=== PATIENT | male | born 1960 | race Caucasian/White ===

== ENCOUNTER 2020-04-11 19:13 | Emergency (ER) | payer OTHER ==
[2020-04-11] MEDS ORDERED: HYDROcod/ACETAM 5/325 MG TABLET PO STA ×2 (19:44→20:23)
--- NOTE | 2020-04-11 19:47 | ED Physician Documentation ---
PD HPI UPPER EXT INJURY - Stated complaint Stated Complaint: RT HAND INJ - Chief complaint Chief Complaint: Ext Problem - History obtained from History obtained from: Patient - History of Present Illness Location: Right, Hand Type of injury: Blunt / blow Where injury occurred: Work Similar symptoms before: Has not had sx before Recently seen: Not recently seen - Additonal information Additional information: -year-old right-handed male presents to the emergency department with acute right hand pain after his hand slipped off a wrench at work today forcefully slamming into a stainless steel sink. He reports that he immediately had pain over the second, third ,and fourth, proximal MCP joints. However he continued to work normally until he went home. He has been icing the hand but that it has gotten progressively more swollen and he has pain when he extends the fingers he is worried that he may have a subtle fracture. no open sores or lesions PD PAST MEDICAL HISTORY - Past Medical History Past Medical History: Yes Cardiovascular: Hypertension Endocrine/Autoimmune: Type 2 diabetes - Past Surgical History Past Surgical History: Yes Ortho: Arthroscopic surgery - Present Medications Home Medications: Ambulatory Orders Medication Instructions Recorded Confirmed Ibuprofen [Motrin] 600 mg PO Q6H PRN #30 tab 04/11/20 - Allergies Allergies/Adverse Reactions: Allergies Allergy/AdvReac Type Severity Reaction Status Date / Time No Known Drug Allergies Allergy Verified 04/11/20 19:28 - Social History Does the pt smoke?: Yes Smoking Status: Current every day smoker Does the pt drink ETOH?: Yes Does the pt have substance abuse?: No - Immunizations Immunizations are current?: Yes - POLST Patient has POLST: No PD ED PE EXPANDED - General General: Alert, No acute distress - Extremities Extremities: Tenderness, Right hand (normal felxion/extension of hand wrist agaist resistance. swelling over the 2,3,4th MCP joints. 2+ radial pulse) Results - Vitals Vitals: Vital Signs - 24 hr 04/11/20 04/11/20 19:25 20:52 Temperature 36.7 C Heart Rate 61 65 Respiratory 17 16 Rate Blood Pressure 122/71 135/79 H O2 Saturation 98 99 Oxygen O2 Source Room air - Rads (name of study) right hand Radiology: Final report received (Right hand without acute fracture or dislocation) PD MEDICAL DECISION MAKING - ED course Complexity details: reviewed results, considered differential, d/w patient ED course: 59-year-old male presents with acute right hand pain after his hand slipped off a wrench at work and slammed forcefully into a stainless steel sink. He has swelling over the second third and fourth MCP joints but normal movement of the hand and flexion and extension at all digits. The x-ray does not show acute fracture or dislocation. At this time I favor a contusion. Patient was given a Velcro wrist blade brace for support. I recommend NSAIDs and follow-up with primary care physician if symptoms not improved in 1 week. This was a on the job work injury however he was able to finish work today and I feel that he should be able to continue working without restriction Departure - Departure Disposition: 01 Home, Self Care Clinical Impression: Right hand pain Condition: Stable Prescriptions: Ibuprofen [Motrin] 600 mg PO Q6H PRN #30 tab PRN Reason: Pain Comments: The x-ray of your hand does not show any broken bones. I think you simply have a bad contusion. Let us have you wear the wrist brace while at work and take ibuprofen as prescribed for the next 3 to 4 days. I would like you to follow-up with your primary care doctor for further evaluation if your symptoms are not much better within 1 week. However I do feel that you can return to regular work duty at this time. Discharge Date/Time: 04/11/20 20:53
--- NOTE | 2020-04-11 20:28 | XRAY Report ---
PROCEDURE: Hand 3 View RT INDICATIONS: r/o fx. hit by wrench TECHNIQUE: 3 views of the hand(s) acquired. COMPARISON: None. FINDINGS: Bones: No acute fractures or dislocations. Multilevel background degenerative changes of the right hand. No suspicious bony lesions. Soft tissues: No suspicious soft tissue calcifications. IMPRESSION: Right hand without acute fracture or dislocation. If there is persistent clinical concern for a radiographically occult fracture, recommend immobilizat ion and repeat imaging in 10 to 14 days. Reviewed by: Rc Penn MD on 04/11/2020 8:26 PM PDT Approved by: Rc Penn MD on 04/11/2020 8:26 PM PDT Station ID: [id number]
[2020-04-11 20:54] VITALS: BP 135/79
== END 2020-04-11 20:53 | disposition home or self-care (01) ==
LOC: ED 19:13
DX: M79.641 Pain in right hand (principal); I10 Essential (primary) hypertension; E11.9 Type 2 diabetes mellitus without complications; F17.200 Nicotine dependence, unspecified, uncomplicated
CPT/HCPCS: 73130; 99281; 99283; A9270

== ENCOUNTER 2020-10-21 13:15 | Emergency (ER) | payer OTHER ==
[2020-10-21 13:34] VITALS: BP 136/84
[2020-10-21 13:55] LABS: BASOPHILS # (AUTO) 0.1 10^3/uL (0.0-0.1); BASOPHILS % (AUTO) 0.5 %; EOSINOPHILS # (AUTO) 0.2 10^3/uL (0.0-0.7); EOSINOPHILS % (AUTO) 1.6 %; HGB - HEMOGLOBIN 15.3 g/dL (14.0-18.0); LYMPHOCYTES % (AUTO) 21.2 %; MEAN CORPUSCULAR HEMOGLOBIN 32.1 pg (27.0-31.0); MEAN CORPUSCULAR VOLUME 94.5 fL (80.0-94.0); MEAN PLATELET VOLUME 9.8 fL (7.4-11.4); MONOCYTES # (AUTO) 0.6 10^3/uL (0.0-1.0); MONOCYTES % (AUTO) 6.6 %; NEUTROPHILS # (AUTO) 6.5 10^3/uL (1.5-6.6); NEUTROPHILS % (AUTO) 69.8 %; PLT - PLATELET COUNT 144 10^3/uL (130-450); RED BLOOD COUNT 4.76 10^6/uL (4.70-6.10); RED CELL DISTRIBUTION WIDTH 12.3 % (12.0-15.0); WHITE BLOOD COUNT 9.4 x10^3/uL (4.8-10.8)
[2020-10-21 13:59] LABS: INR 1.2 (0.8-1.2); PT - PROTHROMBIN TIME 13.5 secs (9.9-12.6)
[2020-10-21 14:02] LABS: BILIRUBIN,URINE NEGATIVE (NEGATIVE); GLUCOSE, URINE (UA) NEGATIVE (NEGATIVE); KETONES,URINE (UA) NEGATIVE (NEGATIVE); LEUKOCYTE ESTERASE, URINE NEGATIVE (NEGATIVE); NITRITE,URINE NEGATIVE (NEGATIVE); OCCULT BLOOD,URINE NEGATIVE (NEGATIVE); PROTEIN,URINE NEGATIVE (NEGATIVE); UROBILINOGEN,URINE 0.2 (NORMAL) E.U./dL (NORMAL)
[2020-10-21 14:03] LABS: CLARITY,URINE CLEAR (CLEAR)
[2020-10-21 14:06] LABS: ALBUMIN 4.2 g/dL (3.2-5.5); ALBUMIN/GLOBULIN RATIO 1.4 (1.0-2.2); BILIRUBIN,TOTAL 1.2 mg/dL (0.2-1.0); CALCIUM 9.3 mg/dL (8.5-10.3); CREATININE 0.8 mg/dL (0.6-1.2); POTASSIUM 4.2 mmol/L (3.5-5.0); TOTAL PROTEIN 7.3 g/dL (6.7-8.2)
--- NOTE | 2020-10-21 14:26 | ED Physician Documentation ---
History of Present Illness - Stated complaint Stated Complaint: MALE - Chief complaint Chief Complaint: General - History obtained from History obtained from: Patient - History of Present Illness Timing: Today Pain level max: 0 Pain level now: 0 - Additonal information Additional information: Patient is a 60-year-old male who presents to the emergency department complaining of rectal bleeding x2 today. He states he was having diarrhea as well. No pain. The first time he states was bright red blood, the second time appeared darker to him. Has never had this before. Had a normal colonoscopy about 10 years ago. He is not on any blood thinners. No abdominal pain. No vomiting. No recent travel or antibiotics. Currently asymptomatic. Review of Systems Ten Systems: 10 systems reviewed and negative Constitutional: denies: Fever, Chills Throat: denies: Sore throat Cardiac: denies: Chest pain / pressure Respiratory: denies: Cough GI: denies: Vomiting, Hematemesis : denies: Dysuria, Frequency, Hesitancy Skin: denies: Rash Musculoskeletal: denies: Neck pain, Back pain Neurologic: denies: Headache PD PAST MEDICAL HISTORY - Past Medical History Cardiovascular: Hypertension Endocrine/Autoimmune: Type 2 diabetes - Past Surgical History Past Surgical History: Yes Ortho: Arthroscopic surgery - Present Medications Home Medications: Ambulatory Orders Medication Instructions Recorded Confirmed Ibuprofen [Motrin] 600 mg PO Q6H PRN #30 tab 04/11/20 - Allergies Allergies/Adverse Reactions: Allergies Allergy/AdvReac Type Severity Reaction Status Date / Time No Known Drug Allergies Allergy Verified 10/21/20 13:34 - Social History Does the pt smoke?: Yes Smoking Status: Current every day smoker Does the pt drink ETOH?: Yes Does the pt have substance abuse?: No - Immunizations Immunizations are current?: Yes - POLST Patient has POLST: No PD ED PE NORMAL - Vitals Vital signs reviewed: Yes - General General: Alert and oriented X 3, No acute distress - HEENT HEENT: Moist mucous membranes - Neck Neck: Supple, no meningeal sign - Cardiac Cardiac: RRR - Respiratory Respiratory: No respiratory distress, Clear bilaterally - Abdomen Abdomen: Soft, Non tender, Non distended - Rectal Rectal: Other (No visible hemorrhoids. Small amount of bright red blood on the glove. Otherwise normal rectal exam) - Derm Derm: Warm and dry - Extremities Extremities: No edema, No calf tenderness / cord - Neuro Neuro: Alert and oriented X 3 - Psych Psych: Normal mood, Normal affect Results - Vitals Vitals: Vital Signs - 24 hr 10/21/20 13:30 Temperature 36.8 C Heart Rate 70 Respiratory 18 Rate Blood Pressure 136/84 H O2 Saturation 97 Oxygen O2 Source Room air - Labs Labs: Laboratory Tests 10/21/20 10/21/20 10/21/20 13:46 13:46 13:46 WBC 9.4 RBC 4.76 Hgb 15.3 Hct 45.0 MCV 94.5 H MCH 32.1 H MCHC 34.0 RDW 12.3 Plt Count 144 MPV 9.8 Neut # (Auto) 6.5 Lymph # (Auto) 2.0 Andrew # (Auto) 0.6 Eos # (Auto) 0.2 Baso # (Auto) 0.1 Absolute Nucleated RBC 0.00 Nucleated RBC % 0.0 PT 13.5 H INR 1.2 Sodium Potassium Chloride Carbon Dioxide Anion Gap BUN Creatinine Estimated GFR (MDRD) Glucose Calcium Total Bilirubin AST ALT Alkaline Phosphatase Total Protein Albumin Globulin Albumin/Globulin Ratio Lipase Urine Color Urine Clarity Urine pH Ur Specific Albin Urine Protein Urine Glucose (UA) Urine Ketones Urine Occult Blood Urine Nitrite Urine Bilirubin Urine Urobilinogen Ur Leukocyte Esterase Ur Microscopic Review Urine Culture Comments Blood Type A NEGATIVE Antibody Screen NEGATIVE 10/21/20 10/21/20 13:46 13:53 WBC RBC Hgb Hct MCV MCH MCHC RDW Plt Count MPV Neut # (Auto) Lymph # (Auto) Andrew # (Auto) Eos # (Auto) Baso # (Auto) Absolute Nucleated RBC Nucleated RBC % PT INR Sodium 136 Potassium 4.2 Chloride 98 L Carbon Dioxide 24 Anion Gap 14.0 H BUN 15 Creatinine 0.8 Estimated GFR (MDRD) 98 Glucose 124 H Calcium 9.3 Total Bilirubin 1.2 H AST 17 ALT 27 Alkaline Phosphatase 46 Total Protein 7.3 Albumin 4.2 Globulin 3.1 Albumin/Globulin Ratio 1.4 Lipase 26 Urine Color LIGHT YELLOW Urine Clarity CLEAR Urine pH 6.0 Ur Specific Albin 1.010 Urine Protein NEGATIVE Urine Glucose (UA) NEGATIVE Urine Ketones NEGATIVE Urine Occult Blood NEGATIVE Urine Nitrite NEGATIVE Urine Bilirubin NEGATIVE Urine Urobilinogen 0.2 (NORMAL) Ur Leukocyte Esterase NEGATIVE Ur Microscopic Review NOT INDICATED Urine Culture Comments NOT INDICATED Blood Type Antibody Screen - Rads (name of study) CT abdomen pelvis Radiology: Prelim report reviewed, EMP read contemporaneously, See rad report PD MEDICAL DECISION MAKING - ED course Complexity details: reviewed results, re-evaluated patient, considered differential, d/w patient ED course: 60-year-old male with stable hematochezia today. No abnormality on CT scan. Hemoglobin is 15. No recurrent bleeding in the emergency department. Patient is well-appearing, nontoxic. Afebrile. No chest pain. No shortness of breath. We will have him follow-up with his doctor for further care and an outpatient colonoscopy. Patient counseled regarding signs and symptoms for which I believe and urgent re-evaluation would be necessary. Patient with good understanding of and agreement to plan and is comfortable going home at this time This document was made in part using voice recognition software. While efforts are made to proofread this document, sound alike and grammatical errors may occur. IMPRESSION: No acute abnormality identified. No free fluid. Diverticulosis without diverticulitis. Departure - Departure Disposition: 01 Home, Self Care Clinical Impression: Hematochezia Condition: Good Instructions: ED Hematochezia Stable Follow-Up: Aaron Granados [Primary Care Provider] - Within 1 week Comments: There are no acute abnormalities on your laboratory testing or CT scan. Please follow-up with your doctor for further care. You will need a colonoscopy scheduled within the next 1-2 weeks. Return if you worsen. Discharge Date/Time: 10/21/20 16:25
[2020-10-21] MEDS ORDERED: IOVERSOL 320 100 ML VIAL IVP ONE ×2 (14:42→14:54)
--- NOTE | 2020-10-21 15:18 | CT Report ---
PROCEDURE: Abdomen/Pelvis W INDICATIONS: rectal bleeding, diarrhea CONTRAST: IV CONTRAST: Optiray 320 ml: 100 PO CONTRAST: *NO PO CONTRAST TECHNIQUE: After the administration of intravenous contrast, 5 mm thick sections acquired from the diaphragms to the symphysis. 5 mm thick coronal and sagittal reformats were acquired. For radiation dose reducti on, the following was used: automated exposure control, adjustment of mA and/or kV according to ayesha ent size. COMPARISON: None. FINDINGS: Image quality: Excellent. ABDOMEN: Lung bases: 3 mm pulmonary nodule at the left lower lobe. No pleural effusion. Heart size is normal. Solid organs: Liver and spleen are normal in size and enhancement. Small splenule. Gallbladder is un remarkable. Biliary system is non dilated. Pancreas enhances normally. No adrenal nodules. Kidney s demonstrate normal size and enhancement, without hydronephrosis. Small left kidney simple cyst. Peritoneum and bowel: Bowel loops demonstrate normal wall thickness and caliber. Diverticulosis. Nor mal appendix. No free fluid or air. Nodes and vessels: No retroperitoneal or mesenteric adenopathy by size criteria. Aorta and inferior vena cava are normal in size. Miscellaneous: No significant ventral hernias. PELVIS: Genitourinary: Bladder wall thickness is normal. Bladder is distended. Right seminal vesicle is mil dly prominent compared to the left. Miscellaneous: No inguinal hernias or adenopathy. No free fluid. Bones: No suspicious bony lesions. No vertebral body compression fractures. IMPRESSION: No acute abnormality identified. No free fluid. Diverticulosis without diverticulitis. Reviewed by: Wayne yL MD on 10/21/2020 2:17 PM FIGUEROA Approved by: Wayne Ly MD on 10/21/2020 2:17 PM AKDT Station ID: [id number]
== END 2020-10-21 16:25 | disposition home or self-care (01) ==
LOC: ED 13:15
DX: K92.1 Melena (principal); F17.200 Nicotine dependence, unspecified, uncomplicated
CPT/HCPCS: 36415; 74177; 80053; 81003; 83690; 85025; 85610; 86850; 86900; 86901; 99284; Q9967; 81001; 87086

== ENCOUNTER 2021-09-27 15:41 | Outpatient (CLI) | payer OTHER ==
[2021-09-27 16:32] VITALS: BP 127/95
--- NOTE | 2021-09-27 16:32 | SLEEP CARE CONSULTATION ---
Information from patient questionnaire entered by Elan Mistry MA. I have reviewed and concur with the information entered by Elan Mistry MA. This document represents the service I personally performed and the decisions made by me, Shoshana Webster ARNP. History of Present Illness Service Date and Time: 09/27/2021 1541 Reason for Visit: New patient (ONSET 08/2011, STOPPED CPAP 1 YEAR AGO,), Previously diagnosed sleep apnea Chief Complaint: reports: Unrefreshed sleep, Snoring, Excessive daytime sleepiness, Observed pauses in breathing, Fatigue, Other (needs supplies) Date of Onset: 20 YEARS Usual bedtime: 930 PM Time it takes to fall asleep: NOT LONG Snores at night: Yes Observed to quit breathing while asleep: Yes Sleeps alone due to snoring: No Number of times waking at night: 2 Reasons for waking at night: reports: Snoring, Gasping for air, Bathroom Toss, Turn, or Twitch while sleeping: Yes Recalls having dreams: Yes Usually gets out of bed at: 0600 Feels refreshed in the morning: No Morning headache: No Sleepy or fatigued during the day: Yes Ever fallen asleep while driving: No Takes day naps: No (rarely) Dreams during day naps: Yes Prior sleep studies: Yes Year and Where: [facility] 1993; [facility] Additional HPI information: I had the pleasure of seeing CHRISTINA ALLEN today regarding the possibility of him having a sleep disorder. He was previously diagnosed with sleep apnea but has not been using the CPAP for a 4-5 years. His current complaints are excessive daytime sleepiness, fatigue, observed pauses in breathing, snoring, unrefreshed sleep and needs supplies. Patient states he lost his insurance and that his CPAP broke. He was unable to get it replaced or afford supplies. He has not been able to use his CPAP for the last 4 to 5 years. He finally obtained insurance and is here to see if he can get back on the CPAP if needed. Patient has lost about 40 pounds since his last sleep study. He states he was so severe they woke him up and put him on a CPAP pretty quickly after he fell asleep during the study. He does not voice any issues that he had using CPAP before it broke. He feels has improved but still has daytime fatigue, loud snoring and unrefreshed sleep. - Parasomnia Symptoms Ever been unable to move upon waking from sleep: No Walks in sleep: Yes (when younger) Talks in sleep: Yes Ever acted out dreams in sleep: Yes (not since he was younger) Ever felt weak in the knees when startled or emotional: No Bothered by creepy, crawly, restless sensations in legs: No Problems with memory or concentration: Yes (not severe, just when tired) CPAP Compliance Data Compliance data discussion: He states he was using his cpap until it broke and because he did not have insurance, he could not replace it or get supplies. 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 Patient is and lives in [place]. Have you smoked in the past 12 months: Yes Cigarettes per day (20/pack): 10 Years of smokin Smoking Pack Years: 10.0 Alcohol use: Yes Alcohol amount and frequency: 1 X YEARLY Caffeine use: Yes Caffeine amount and frequency: 1 X DAILY Family History Family history of sleep disordered breathing: Yes Family Hx Sleep Apnea: Father: Snoring, Sleep apnea - Untreated Allergies and Home Medications Known drug allergies: No Drug allergies reviewed: Yes (NKDA) Home medication list reviewed: Yes Allergy and home medication list: Allergies No Known Drug Allergies Allergy (Verified 10/21/20 13:34) Medications: Metformin Losartin Rosuvastatin Tradjenta Review of Systems Weight gain over past 5 years: 20 Weight loss over past 5 years: 40 Respiratory: reports: wheeze Ear/Nose/Throat: denies: tonsillectomy Musculoskeletal: reports: joint pain Immunologic: reports: rash, itching Physical Exam Vital signs obtained and entered by: Edmond Mistry CMA AAMA Blood Pressure: 127/95 (RIGHT, PULSE 73, RESP 16, ) Cuff size: wrist Heart Rate: 71 O2 Saturation: 96 Height: 6 ft Weight: 265 lb Body Mass Index: 35.9 BMI Classification: Obese Heart: regular rate and rhythm Lungs: clear bilaterally Impression and Plan 1. Suspected Obstructive Sleep Apnea-Hypopnea Syndrome, as previously diagnosed and as suggested by a history of loud and irregular snoring, observed cessation of breath while asleep, gasping or choking in sleep, unrefreshed sleep, cognitive impairment, and excessive daytime sleepiness. I recommend proceeding to polysomnography to confirm the diagnosis and to assess severity. If the patient has significant sleep disordered breathing, a manual CPAP titration study will also be performed to find the optimal treatment pressure. I informed the patient of what the sleep studies involve and after some discussion, obtained agreement to proceed. The pathophysiology of obstructive sleep apnea- hypopnea syndrome was discussed with the patient and health risks of cardiovascular and cerebrovascular disease if not treated. 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 Patient agreed to plan. * Schedule polysomnography +- manual CPAP titration study and return in 1-2 weeks after the study to discuss result and initiate therapy. * Avoid long distance driving or driving when feeling sleepy. * Avoid alcohol, sedative and muscle relaxant around bedtime. * Attempt to lose weight. * Review instructions provided by trained office staff on how to prepare for the sleep study. * Return for follow-up after sleep study completed. Counseling Topics: Weight loss health impact Visit Type: In Office Time Spent with Patient (minutes): 31 Provider Statement: I spent 100% of the Face to Face Visit with the patient with greater than 50% spent counseling the patient and coordination of care.
== END 2021-09-27 15:42 | disposition home or self-care (01) ==
LOC: SC 15:41
PROVIDERS: ATTEND Nurse Practitioner Family
DX: G47.33 Obstructive sleep apnea (adult) (pediatric) (principal); E66.9 Obesity, unspecified; Z68.35 Body mass index [BMI] 35.0-35.9, adult
CPT/HCPCS: 99203; 99212

== ENCOUNTER 2021-10-24 15:51 | Outpatient (CLI) | payer OTHER | END 2021-10-24 15:52 | disposition home or self-care (01) | LOC: SC 15:51 | PROVIDERS: ATTEND Nurse Practitioner Family | DX: G47.33 Obstructive sleep apnea (adult) (pediatric) (principal); R09.02 Hypoxemia | CPT/HCPCS: 95806 ==

== ENCOUNTER 2021-11-08 16:16 | Outpatient (CLI) | payer OTHER ==
--- NOTE | 2021-11-08 17:00 | SLEEP CARE CONSULTATION ---
Information from patient questionnaire entered by Elan Mistry MA. I have reviewed and concur with the information entered by Elan Mistry MA. This document represents the service I personally performed and the decisions made by , Shoshana Webster ARNP. History of Present Illness Service Date and Time: 11/08/2021 1616 Initial [place] Sleepiness Scale score: 20 (2021) Current [place] Sleepiness Scale score: 20 Additional HPI information: CHRISTINA ALLEN returns for follow up and results of the recently performed home sleep study. I explained the pathophysiology behind obstructive sleep apnea. We then spent quite a bit of time discussing different treatment options. For mild obstructive sleep apnea, surgery and oral appliance are alternatives to nasal CPAP therapy but in moderate or severe cases, nasal CPAP is the most effective and reliable treatment. Because apnea is primarily in supine position, then positional management therapy could be effective. Methods discussed such as positioning with pillows to prevent supine sleep. I reviewed the impact of weight changes on sleep apnea and strongly recommended losing weight. After some discussion, the patient opted to go with the nasal CPAP therapy. Nasal autoCPAP set at 4-15 cmH20 will be ordered with rationale explained. A manual titration study will be ordered if unable to find optimal pressure with office adjustments. I explained how CPAP machine works and what to expect when using the machine. Using CPAP every night in order to get used to it was emphasized. Patient advised to put CPAP mask on before getting into bed so as not to fall asleep without CPAP. To assist acclimation to CPAP use, it could also be used for a short time during day while reading or watching TV. The patient was instructed to call the CPAP supplier to discuss any mechanical problem that may occur. If the mask given is uncomfortable or is difficult to keep on through the night even with adjustment, contact the CPAP supplier as many will replace with another mask style if notified before 30 days. If snoring or perceives is not getting enough air or too much air from the machine, notify this office. AASM patient education PAP tips reviewed and given to patient. Patient counseled not drink alcohol less than 4 hours before bedtime as it can increase snoring and apnea. Patient was cautioned about risks of drowsy driving until sleepiness symptoms resolve. Patient denies drowsy driving. Sleep Study - Results Type of Sleep Study: Home sleep study (F/U HOME STUDY, 10/24/21 [facility],) Prior sleep studies: Yes Year and Where: BISHOP LUQUE 1993; [facility] Polysomnography/Home Sleep Study results: Physician Impression: The quality of the study is good. The length of the study is adequate (> 240 minutes). Please also see the tabulated and graphic data. 1. Obstructive Sleep Apnea-Hypopnea (ICD-10 G47.33), severe, with an AHI of 52.0/hr and brenda SaO2 of 75%. During the study, the patient had 369 apneas (368 obstructive, 0 central, 1 mixed) and 38 hypopneas. The longest episode lasted 204.5 seconds. The respiratory events occurred slightly more frequently during supine sleep (supine AHI was 66.1 and non-supine, 42.21). 2. Hypoxemia (ICD-10 R09.02), moderate, with the lowest oxygen saturation of 75 % and 52.4 minutes with SaO2 under 90%. Baseline oxygen saturation was normal (Average oxygen saturation was 92%). Allergies and Home Medications Home medication list reviewed: Yes (no changes) Allergy and home medication list: Allergies No Known Drug Allergies Allergy (Verified 10/21/20 13:34) Review of Systems Review of systems same as previous: Yes (no changes) Physical Exam Vital signs obtained and entered by: ZAKIYA RETANA Blood Pressure: 129/77 (left) Cuff size: wrist Heart Rate: 68 O2 Saturation: 96 Height: 6 ft Weight: 255 lb Body Mass Index: 34.5 BMI Classification: Obese Impression and Plan 1. Obstructive Sleep Apnea-Hypopnea Syndrome, severe, with lowest oxygen saturation of 75%. Obviously this is the cause of the patients symptoms of unrefreshed sleep, and excessive daytime sleepiness. Positive pressure therapy could benefit diabetes. As mentioned above, the patient will be started on nasal autoCPAP therapy with pressure set at 4-15 cmH2O. A manual titration study will be completed if unable to find optimal treatment pressure with office adjustments. Compliance guidelines also reviewed. A copy of compliance guidelines will be given for reference at check out. Because the apnea is more severe supine, I instructed to avoid sleeping supine using pillow positioning until able to start CPAP use. 2. Hypoxemia, moderate, with the lowest oxygen saturation of 75 % and 52.4 minutes with SaO2 under 90%. His baseline oxygen saturation was normal with an average oxygen saturation of 92%. * Nasal auto CPAP therapy, pressure at 4-15 cm H2O. * Attempt to lose weight. * Avoid alcohol consumption near bedtime. * Avoid supine sleep until using CPAP. * The patient is again cautioned about driving until sleepiness completely resolves. * Return one month after CPAP obtained. I will assess response to therapy and compliance at that time. Counseling Topics: Sleeping position, Weight loss health impact Visit Type: In Office Time Spent with Patient (minutes): 20 Provider Statement: I spent 100% of the Face to Face Visit with the patient with greater than 50% spent counseling the patient and coordination of care.
[2021-11-08 17:03] VITALS: BP 129/77
== END 2021-11-08 16:17 | disposition home or self-care (01) ==
LOC: SC 16:16
PROVIDERS: ATTEND Nurse Practitioner Family
DX: G47.33 Obstructive sleep apnea (adult) (pediatric) (principal); E66.9 Obesity, unspecified; Z68.34 Body mass index [BMI] 34.0-34.9, adult
CPT/HCPCS: 99212; 99213